=== PATIENT | male | born 1955 | race Caucasian/White ===

== ENCOUNTER 2020-09-01 06:19 | Outpatient (REF) | payer OTHER, SELFPAY ==
[2020-09-01 11:11] LABS: Glucose Urine UA NEG (NEG); Leukocyte Esterase Urine NEG (NEG); Nitrite Urine NEG (NEG); Specific Gravity - Urine 1.025 (1.005-1.025); Urine Blood NEG (NEG); Urine Ketones NEG (NEG); Urine Protein 1+ MG/DL (NEG-TRACE)
[2020-09-01 11:13] LABS: Appearance Urine CLEAR; Color Urine YELLOW
[2020-09-01 11:14] LABS: MANUAL DIFF FLAG NO
[2020-09-01 11:21] LABS: Basophils Percent Auto 0.6 % (0-2); Eosinophils Absolute Auto 0.1 X10*3/uL (0.0-0.4); Eosinophils Percent Auto 2.3 % (0-4); Hematocrit 45.5 % (42-52); Imm Gran Abs Auto 0.03 X10*3/uL (0.00-0.03); Imm Gran Pct Auto 0.5 % (0.0-0.4); Lymphocytes Absolute Auto 1.8 X10*3/uL (1.2-4.9); Lymphocytes Percent Auto 28.2 % (20-40); Mean Corpuscular Hemoglobin 29.2 pg (27.0-33.0); Mean Corpuscular Volume 88.5 fL (80-98); Mean Platelet Volume 9.6 fL (9.4-12.4); Monocytes Absolute Auto 0.6 X10*3/uL (0.1-1.2); Monocytes Percent Auto 9.3 % (2-11); Neutrophils Absolute Auto 3.7 X10*3/uL (2.0-8.3); Neutrophils Percent Auto 59.1 % (45-73); Platelet Count 267 X10*3/uL (160-400); Red Blood Count 5.14 X10*6/uL (4.60-5.80); Red Cell Distribution Width 12.1 % (11.0-16.0); White Blood Count 6.2 X10*3/uL (4.8-10.8)
[2020-09-01 11:25] LABS: Mucus Urine TRACE /LPF; RBC Urine 0-2 /HPF (0); Squamous Epithelial Cell Urine TRACE /LPF; WBC Urine 0-2 /HPF (0-4)
[2020-09-01 12:02] LABS: Prostate Specific Antigen Scr 0.41 ng/mL (<0.05-4.0)
[2020-09-01 12:24] LABS: Alanine Aminotransferase 21 U/L (0-40); Albumin Level 4.5 g/dL (3.5-5.0); Alkaline Phosphatase 66 U/L (39-117); Anion Gap 15 (12-20); Aspartate Amino Transferase 18 U/L (5-37); Bilirubin Total 0.4 mg/dL (0.0-1.0); Blood Urea Nitrogen 33 mg/dL (9-16); Calcium 8.5 mg/dL (8.4-10.2); Carbon Dioxide 23 mmol/L (22-29); Chloride 106 mmol/L (96-108); Cholesterol 179 mg/dL; Estimated Glomerular Filt Rate 36; Glucose Fasting 103 mg/dL (60-99); HDL Cholesterol 53 mg/dL; LDL Cholesterol Calculated 105 mg/dl; Potassium 4.3 mmol/l (3.3-5.1); Sodium 140 mmol/L (135-145); Total Protein 7.5 g/dL (6.5-8.0); Triglycerides 105 mg/dL
== END 2020-09-01 06:20 | disposition home or self-care (01) ==
LOC: HO.HMGCLDS 06:19
PROVIDERS: PCP Internal Medicine; Visit Provider Internal Medicine
DX: Z00.00 Encounter for general adult medical examination without abnormal findings (principal)
CPT/HCPCS: 36415; 80053; 80061; 81001; 84153; 85025

== ENCOUNTER 2020-11-15 07:53 | Outpatient (REF) | payer OTHER, SELFPAY ==
[2020-11-15 11:45] LABS: Anion Gap 14 (12-20); Blood Urea Nitrogen 29 mg/dL (9-16); Calcium 8.7 mg/dL (8.4-10.2); Carbon Dioxide 26 mmol/L (22-29); Chloride 106 mmol/L (96-108); Estimated Glomerular Filt Rate 39; Glucose Random 140 mg/dL (60-115); Potassium 4.7 mmol/L (3.3-5.1); Sodium 141 mmol/L (135-145)
== END 2020-11-15 07:54 | disposition home or self-care (01) ==
LOC: HO.HMGCLDS 07:53
PROVIDERS: PCP Internal Medicine; Visit Provider Internal Medicine
DX: N28.9 Disorder of kidney and ureter, unspecified (principal)
CPT/HCPCS: 36415; 80048

== ENCOUNTER 2020-11-15 16:38 | Outpatient (REF) | payer OTHER, SELFPAY ==
--- NOTE | ~2020-11-15 | XR_ITS ---
EXAMINATION: XR KNEE, LEFT CLINICAL INFORMATION: Assess osteoarthritis COMPARISON: None TECHNIQUE: Four views of the left knee. FINDINGS: Bone alignment is normal. No fracture or dislocation is seen. There is arthritis at the medial femoral tibial and patellofemoral joints with joint space narrowing and osteophyte formation. There is an osteophyte at the quadriceps tendon insertion to the patella. There is no joint effusion. XR/XR knee LT 4V IMPRESSION: Moderate left knee osteoarthritis.
[2020-11-15 17:49] LABS: Estimated Average Glucose 108 mg/dL; Hemoglobin A1c % 5.4 %
== END 2020-11-15 16:39 | disposition home or self-care (01) ==
LOC: HO.LAB 16:38
PROVIDERS: PCP Internal Medicine; Visit Provider Internal Medicine
DX: I12.9 Hypertensive chronic kidney disease with stage 1 through stage 4 chronic kidney disease, or unspecified chronic kidney disease (principal); N18.9 Chronic kidney disease, unspecified; R73.03 Prediabetes; M25.562 Pain in left knee
CPT/HCPCS: 36415; 73564; 83036

== ENCOUNTER 2025-01-20 13:48 | Outpatient (AMB) | payer OTHER, SELFPAY ==
--- NOTE | 2025-01-12 15:46 | MHC.PC.OV ---
Intake Visit Reasons: Routine Sign Erector Required: No Accompanied by: Self / Same As Patient Tobacco use date assessed: 01/13/25 Fall risk assessment: No Falls in past year Last assessed Fall Risk: 01/13/25 Dental Screening Dental Screen Date: 01/13/25 Did you have a dental visit in the last 12 months?: Yes Did you have a dental problem in the last 6 months where you did not have access to dental care?: No Questionnaire PHQ-9 Over the last 2 weeks, how often have you been bothered by any of the following problems? 1. Little interest or pleasure in doing things: not at all 2. Feeling down, depressed, or hopeless: not at all 3. Trouble falling or staying asleep, or sleeping too much: not at all 4. Feeling tired or having little energy: not at all 5. Poor appetite or overeating: not at all 6. Feeling bad about yourself - or that you are a failure or have let yourself or your family down: not at all 7. Trouble concentrating on things, such as reading the newspaper or watching television: not at all 8. Moving or speaking so slowly that other people could have noticed. Or the opposite - being so fidgety or restless that you have been moving around a lot more than usual: not at all 9. Thoughts that you would be better off or of hurting yourself in some way: not at all Total score: 0 Source: Developed by Drs. Tereso Song, Elicia Reid, Hector Castellano and colleagues, with an educational jersey from [employer]. Thrive Questionnaire Date Thrive assessed: 01/13/25 I am a: Patient Within the past 12 months, did the food you bought not last and you didn't have the money to get more?: Never true Within the past 12 months, did you worry whether your food would run out before you got money to buy more?: Never true Do you have trouble paying for medicines?: No Do you have trouble getting transportation to medical appointments?: No Do you have trouble paying your heating and electricity bill?: No Do you have trouble taking care of your child, family member or friend?: No Do you have trouble with day-to-day activities such as bathing, preparing meals, shopping, managing finances, etc.?: No Are you currently unemployed and looking for a job?: No Are you interested in more education?: No THRIVE Score: 0 AUDIT C Alcohol Use Questionnaire (AUDIT-C) 1. How often do you have a drink containing alcohol?: Never 3. How often do you have six or more drinks on one occasion?: Never Total Score: 0 ELISEO-7 AMB Questionnaire ELISEO-7 Date ELISEO - 7 assessed: 01/13/25 Feeling nervous, anxious, or on edge: 0 = Not at all Not being able to stop or control worryin = Not at all Worrying too much about different things: 0 = Not at all Trouble relaxin = Not at all Being so restless that it is hard to sit still: 0 = Not at all Becoming easily annoyed or irritable: 0 = Not at all Feeling afraid as if something awful might happen: 0 = Not at all Total ELISEO-7 score (0-4 normal; 5-9 mild; 10-14 moderate; 15-21 severe): 0 Source: Developed by Drs. Tereso Song, Elicia Reid, Hector Castellano and colleagues, with an educational jersey from [employer] Coding
--- NOTE | 2025-01-20 13:43 | MHC.PC.OV ---
Vital Signs 01/20/25 13:53 Weight 222 lb BP 148/90 H Blood Pressure Location Rt brachial Position Sitting Pulse 85 Pulse Source Pulse Oximeter Temp 98.6 F Temp Source Axillary Pulse Oximetry (%) 99 Oxygen Delivery Method Room Air Intake Visit Reasons: Routine - see comments Drapery [place] Former Required: No Accompanied by: Self / Same As Patient Allergies No Known Allergies Allergy (Verified 01/20/25 13:44) Tobacco use date assessed: 01/20/25 Fall risk assessment: No Falls in past year Last assessed Fall Risk: 01/20/25 Dental Screening Dental Screen Date: 01/20/25 Did you have a dental visit in the last 12 months?: Yes Did you have a dental problem in the last 6 months where you did not have access to dental care?: No [facility] Medical History (Updated 01/20/25 @ 14:40 by Jose Francisco Foster MD) Hyperlipidemia Family History (Updated 01/20/25 @ 13:58 by Raquel Lynch MA) Mother No problems noted. Father No problems noted. Social History Housing: House Patient Tobacco Use Status: Never used Tobacco e-Cigarette/Vaping Use: Never Used service: No Current occupational status: retired Cognitive needs: No Hearing needs: No Vision needs: No Questionnaire PHQ-9 Over the last 2 weeks, how often have you been bothered by any of the following problems? 1. Little interest or pleasure in doing things: not at all 2. Feeling down, depressed, or hopeless: not at all 3. Trouble falling or staying asleep, or sleeping too much: not at all 4. Feeling tired or having little energy: not at all 5. Poor appetite or overeating: not at all 6. Feeling bad about yourself - or that you are a failure or have let yourself or your family down: not at all 7. Trouble concentrating on things, such as reading the newspaper or watching television: not at all 8. Moving or speaking so slowly that other people could have noticed. Or the opposite - being so fidgety or restless that you have been moving around a lot more than usual: not at all 9. Thoughts that you would be better off or of hurting yourself in some way: not at all Total score: 0 Source: Developed by Drs. Tereso Song, Hector Dover and colleagues, with an educational jersey from [employer]. Thrive Questionnaire Date Thrive assessed: 01/20/25 I am a: Patient Within the past 12 months, did the food you bought not last and you didn't have the money to get more?: Never true Within the past 12 months, did you worry whether your food would run out before you got money to buy more?: Never true Do you have trouble paying for medicines?: No Do you have trouble getting transportation to medical appointments?: No Do you have trouble paying your heating and electricity bill?: No Do you have trouble taking care of your child, family member or friend?: No Do you have trouble with day-to-day activities such as bathing, preparing meals, shopping, managing finances, etc.?: No Are you currently unemployed and looking for a job?: No Are you interested in more education?: No THRIVE Score: 0 AUDIT C Alcohol Use Questionnaire (AUDIT-C) 1. How often do you have a drink containing alcohol?: Monthly or less 2. How many drinks containing alcohol do you have on a typical day when you are drinking?: 1 or 2 3. How often do you have six or more drinks on one occasion?: Less than monthly Total Score: 2 ELISEO-7 AMB Questionnaire ELISEO-7 Date ELISEO - 7 assessed: 01/20/25 Feeling nervous, anxious, or on edge: 0 = Not at all Not being able to stop or control worryin = Not at all Worrying too much about different things: 0 = Not at all Trouble relaxin = Not at all Being so restless that it is hard to sit still: 0 = Not at all Becoming easily annoyed or irritable: 0 = Not at all Feeling afraid as if something awful might happen: 0 = Not at all Total ELISEO-7 score (0-4 normal; 5-9 mild; 10-14 moderate; 15-21 severe): 0 Source: Developed by Drs. Tereso Song, Hector Dover and colleagues, with an educational jersey from [employer]. Physical exam (Primary Care) Vital Signs: Last Vital Signs Temp 98.6 F 05/21/25 13:53 Pulse 85 01/20/25 13:53 BP 148/90 H 01/20/25 13:53 Pulse Ox 99 01/20/25 13:53 Oxygen Delivery Method Room Air 01/20/25 13:53 Tobacco/Smoking Status: Tobacco use Status Tobacco use date assessed 01/20/25 01/20/25 13:45 Patient Tobacco Use Status Never used Tobacco 01/20/25 13:45 e-Cigarette/Vaping Use Never Used 01/20/25 13:45 PHQ-9: PHQ-9 Score PHQ-9: Total score 0 01/20/25 13:58 Thrive Assessment: Date of Thrive Assessment Date Thrive assessed 01/20/25 01/20/25 13:45 Coding Level of Care Code New Pt Level 4 (71863) Complex EM visit Add On G2211 Diagnoses Hyperlipidemia E78.5 Assessment & Plan Assessment & Plan (1) Hyperlipidemia: Code(s): E78.5 - Hyperlipidemia, unspecified Category: Medical Plan: Will call with results of blood work Plan History of Present Illness The patient is a 69-year-old male presenting with requests for routine blood work and colorectal screening. He reported completing a Cologuard test five years prior and plans to conduct another after returning from a trip. He noted a sore throat, predominantly nocturnal, and shared concern regarding ear congestion related to flying. While under routine surveillance by [facility] for knee issues, no immediate surgical intervention was planned. 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 - He is actively engaged in physical work and remains on his feet daily. - Declines any current medication use, aside from enfa-cza-troncys fish oil, aspirin, and eye vitamins. Review of Systems - HEENT: Reports sore throat at night; reports ear congestion especially concerning air travel; Denies wax accumulation. - Musculoskeletal: Denies current intervention; acknowledges historical knee issues due to prolonged maintenance work. - Gastrointestinal: Denies current gastrointestinal complaints; Reports last Cologuard screening five years ago. - General: Denies overt health concerns; expresses wellness aside from noted minor ailments. Physical Exam General: Cooperative and healthy appearing Nutritional Appearance: Well nourished Orientation/consciousness: Patient oriented x3 Limitations: No limitations Head: Normal to inspection General: Appearance normal, both eyes and all related structures Neck: Normal visual inspection Chest: Normal palpation of entire chest wall Respiratory: No issues, patient reports no breathing problems. ormal respiratory effort Neurology: Patient oriented x3, no neurological concerns reported. Results Plan 1. Travel-Related Ear Congestion - Take Sudafed and chew gum before flight. 2. Sore Throat, Likely Viral Pharyngitis - No concerning findings on examination; condition expected to resolve. 3. Potential Need For Knee Arthroplasty - Continues observation; encouraged follow-up with orthopedics as needed. Discussion Notes I discussed the patient's concerns regarding ear congestion and sore throat. I reassured him regarding the benign nature of the sore throat, likely viral, and advised that taking Sudafed and chewing gum before flights should help manage ear congestion. We also reviewed the patient?s work-related knee discomfort and discussed ongoing orthopedics monitoring without current surgical plans. The necessity of a new Cologuard test post-trip and fasting blood work were also agreed upon, ensuring preventive care continues as planned. Patient Instructions - Take Sudafed and chew gum before flying for ear congestion. - Arrive fasting for blood work. - Follow-up with Cologuard after your trip. - Monitor knee condition; consult orthopedics if worsening occurs. - Seek attention if sore throat persists or worsens. Orders: Orders Complete Blood Count no Diff Today E78.5 - Hyperlipidemia, unspecified Lipid Panel Today E78.5 - Hyperlipidemia, unspecified Liver Panel Today E78.5 - Hyperlipidemia, unspecified Basic Metabolic Panel Today E78.5 - Hyperlipidemia, unspecified Thyroid Stimulating Hormone Today E78.5 - Hyperlipidemia, unspecified UA and rflx microscopic Today E78.5 - Hyperlipidemia, unspecified Referrals Cologuard Test Z12.11 - Encounter for screening for malignant neoplasm of colon
[2025-01-20 13:53] VITALS: BP 148/90; PULSE 85; TEMP 37; O2SAT 99
--- OUTSIDE RECORDS SUMMARY | 2025-01-20 14:21 | XMS_ITS | Data Portability ---
Author Organization [facility], Home Service Address [address] [place] [address] Assessment Encounter Date Assessment Date Assessment LastModified by Organization Details LastModified Time 03/30/2019 03/30/2019 recc to have a colonoscopy he will consider Not available 03/30/2019 14:35:48 Plan of Treatment Reminders Order Date Submit Date Provider Last Modified By Organization Details Last Modified Time Details Appointments None recorded . Lab CMP, serum or plasma 03/30/20 [facility] Not available 9 14:40:48 CBC w/ auto diff 03/30/20 19 [facility] Not available 9 14:40:48 PSA, serum or plasma 03/30/20 19 [facility] Not available 9 14:40:49 lipid panel, blood 03/30/20 19 [address] Not available 9 14:40:49 Referral None recorded . Procedures None recorded . Surgeries None recorded . Imaging None recorded . Medication Orders None recorded . Patient TargetsNo targets recorded. Patient Instructions Encounter Date Encounter Id Patient Instructions Last Modified By Organization Details Last Modified Time 03/30/2019 [id number] psoriasis: care instructions Not available 03/30/2019 14:35:25 Reason for Referral None Reported. Problems Name Problem SNOMED Code Status Onset Date Resolution Date Notes Provider Name and Address Organization Details Recorded Time Psoriasis [id number] Active Nino Khan, DO [address] [place], [address], [facility] 9 14:00:33 Problem Notes None recorded. Medical Equipment None Reported. Allergies No known drug allergies Medications Name Sig Start Date Stop Date Status Note LastModified by Organization Details LastModified Time halobetasol propionate 0.05 % topical ointment uses only as needed active Not Available Not Available No t Available Vitals Date Recorded Body height Body mass index (BMI) Body weight Heart rate Oxygen saturation Oxygen saturation in Arterial blood by Pulse oximetry Systolic blood pressure Diastolic blood pressure Provider Name and Address Organization Details Last Updated DateTime 160.02 cm 36.6 kg/m2 65773.9 g 88 /min 100 % 100 % 156 mm[Hg] 84 mm[Hg] Nino Khan DO [address] [place] [address], [phone], [facility] 9 14:02:22 Social History None recorded. Functional Status None recorded. Mental Status None recorded. Family History Nothing Reported. Medical History No medical history recorded. Past Encounters Encounter ID Performer Location Encounter Start Date Encounter Closed Date Diagnosis/Indication Diagnosis SNOMED-CT Code Diagnosis ICD10 Code Diagnosis Note [id number] Nino Khan DO [facility] [address] [place] [address],[place] [address] 03/30/2019 13:48:25 03/30/2019 14:42:06 [facility] 7123070 L40.[address] dozier no current issue [facility] examination 284473016 Z00.00 Health Concerns Section Related Observation LastModified by Organization Detai ls LastModified Time None Recorded Concern Status LastModified by Organization Details LastModified Time None Recorded Advance Directives Directive None Recorded Payers Encounter Date Sequence Insurance Name Policy Number Policy Colunga Covered Member ID Colunga Member ID Guarantor Name 03/30/[address] [place] [address] [id number] Martha Jackelin [id number] Hamilton Benítez Notes Date Note Type Note Provider Name a nd Address Organization Details Recorded Time 03/30/2019 text/html here for rehck feels good and is not having any issues denies cp 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
--- OUTSIDE RECORDS SUMMARY | 2025-01-20 14:21 | XMS_ITS | Clinical Summary ---
Author Organization [facility] Facility Address [address] [address] Care Team Providers Care Carpenter Repair Name Role Phone Andrew Christensen MD Primary Care Provider [phone] Social History Tobacco Use Types Packs/Day Years Used Date Smoking Tobacco: Never Assessed Sex and Gender Information Value Date Recorded Sex Assigned at Not on file Legal Sex Male 1:44 PM EDT Gender Identity Not on file Sexual Orientation Not on file Plan of Treatment Health Maintenance Due Date Last Done Comments Colorectal Cancer Screening: Annual FOBT 2002 Colorectal Cancer Screening: Colonoscopy 2002 Colorectal Cancer Screening: Sigmoidoscopy 2002 Pneumococcal Vaccine: 50+ Ye ars (1 of 1 - PCV) 2003 Influenza Vaccine (Season Ended) 2025 Hepatitis B Vaccine Aged Out No longe r eligible based on patient's age to complete this topic Care Teams Carpenter Repair Relationship Specialty Start Date End Date Andrew Christensen MD [id number] [place], [place] PCP - General Internal Medicine 11/25/20
== END 2025-01-20 14:36 | disposition home or self-care (01) ==
LOC: HO.HMCHD 13:49
PROVIDERS: PCP Internal Medicine; Visit Provider Internal Medicine
DX: E78.5 Hyperlipidemia, unspecified (principal)

== ENCOUNTER → 2025-01-20 13:48 | Outpatient (BNVA) | payer OTHER, SELFPAY | PROVIDERS: PCP Internal Medicine; Visit Provider Internal Medicine | DX: Z13.89 Encounter for screening for other disorder (principal) ==

== ENCOUNTER 2025-06-01 14:08 | Outpatient (REF) | payer OTHER, SELFPAY ==
[2025-06-01 15:00] LABS: MANUAL DIFF FLAG NO
[2025-06-01 15:30] LABS: Hematocrit 41.9 % (42.0-52.0); Hemoglobin 14.7 g/dl (14.0-18.0); Imm Gran Abs Auto 0.02 X10*3/uL (0.00-0.03); Imm Gran Pct Auto 0.3 % (0.0-0.4); Lymphocytes Absolute Auto 1.7 X10*3/uL (1.2-4.9); Mean Corpuscular HGB Conc 35.1 g/dl (31.0-36.0); Mean Corpuscular Hemoglobin 29.6 pg (27.0-33.0); Mean Corpuscular Volume 84.5 fL (80.0-98.0); NRBC Abs Auto 0.000 X10*3/uL (0.0-0.012); NRBC Pct Auto 0.0 /100WBC (0.0-0.2); Platelet Count 233 X10*3/uL (160-400); Red Blood Count 4.96 X10*6/uL (4.60-5.80); White Blood Count 7.1 X10*3/uL (4.8-10.8)
[2025-06-01 15:34] LABS: Total Hemoglobin (HGBA1C) 3748.9326 umol/L
[2025-06-01 16:13] LABS: Alanine Aminotransferase 19 U/L (0-40); Albumin Level 4.5 g/dL (3.5-5.0); Alkaline Phosphatase 71 U/L (39-117); Anion Gap 13 (12-20); Aspartate Amino Transferase 27 U/L (5-37); Blood Urea Nitrogen 35 mg/dL (9-16); Calcium 8.6 mg/dL (8.4-10.2); Carbon Dioxide 23 mmol/L (22-29); Chloride 112 mmol/L (96-108); Cholesterol 166 mg/dL (<200); Estimated Glomerular Filt Rate 26; HDL Cholesterol 45 mg/dL (>40); Potassium 4.6 mmol/L (3.3-5.1); Sodium 143 mmol/L (135-145); Total Protein 7.2 g/dL (6.5-8.0); Triglycerides 110 mg/dL (<150)
[2025-06-02 05:00] LABS: Syphilis Screen Nonreactive (Nonreactive)
[2025-06-02 05:52] LABS: HBS Num1 0.00 mIU/mL (0-7.99); HBc Num1 0.06 S/CO (0.00-0.79); HBsAGNum1 0.44 S/CO (0.00-0.99); HIV Num 1 0.06 S/CO (0.00-0.99); Hepatitis A Antibody IgM 0.15 Index (0-0.79); Hepatitis B Surface Antigen Negative (Negative); ~HepC Num1 0.12 S/CO (0.00-0.79); ~Hepatitis A Antibody IgM Nonreactive (Nonreactive); ~Hepatitis B Surface Antibody NONREACTIVE (Nonreactive); ~Hepatitis C Antibody Nonreactive (Nonreactive)
== END 2025-06-01 14:09 | disposition home or self-care (01) ==
LOC: HO.LAB 14:08
PROVIDERS: PCP Student in an Organized Health Care Education/Training Program; Visit Provider Student in an Organized Health Care Education/Training Program
DX: Z76.89 Persons encountering health services in other specified circumstances (principal); J06.9 Acute upper respiratory infection, unspecified; I10 Essential (primary) hypertension; M17.11 Unilateral primary osteoarthritis, right knee; Z79.899 Other long term (current) drug therapy
CPT/HCPCS: 36415; 80053; 80061; 82306; 83036; 84443; 85025; 86704; 86706; 86709; 86780; 86803; 87340; 87389

== ENCOUNTER 2025-06-01 14:08 | Outpatient (AMB) | payer OTHER, SELFPAY ==
--- NOTE | 2025-06-01 12:49 | MHC.PC.OV ---
Vital Signs 06/01/25 14:16 Height 5 ft 5 in Weight 217 lb BMI 36.1 BP 160/102 H Blood Pressure Location Lt brachial Position Sitting Respiration 18 Pulse 88 Pulse Source Pulse Oximeter Temp 100.2 F Temp Source Temporal Artery Scan Pulse Oximetry (%) 98 Oxygen Delivery Method Room Air Intake Visit Reasons: Sick Appt Nursing Executive Required: No Accompanied by: Spouse Allergies No Known Allergies Allergy (Verified 06/01/25 12:49) Medication List - Last Reconciled 06/01/25 by Christopher Saldana MD halobetasol propionate 0.05% topical BEDTIME Tobacco use date assessed: 01/20/25 Fall risk assessment: No Falls in past year Last assessed Fall Risk: 06/01/25 Dental Screening Dental Screen Date: 06/01/25 Did you have a dental visit in the last 12 months?: Yes Did you have a dental problem in the last 6 months where you did not have access to dental care?: No Was dental information given to patient?: Patient has dentist HPI HPI Comments History of Present Illness Details The patient is a 69-year-old male presenting with a persistent cough and potential upper respiratory infection. The symptoms began after returning from a trip to [place], which started on a Saturday. He reported the onset of coughing initially, followed by a sore feeling in the lungs from the frequency of coughing. He experienced a low-grade fever of 98.9?F, which then increased to 100.2?F. There were episodes of productive cough with green sputum. Despite the frequent coughing, the patient denied any breathing difficulties. The patient tested negative for COVID-19 but has not been tested for influenza or RSV. The symptoms include coughing and a mild fever, with the cough alleviating over time as symptoms are reported to be calming down in the present context. He is cautious about exposure as he works with older, handicapped individuals and was exposed to someone with a cold. The patient prefers not to use antibiotics prematurely and prefers symptomatic treatments due to the absence of severe symptoms like difficulty breathing or high fever. 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 - Smoking: Denies smoking. - Alcohol: Consumes alcohol occasionally. - Exercise: Has limitations due to [id number] knee issues but expressed an interest in biking and walking for exercise. - Weight Management: Attempts at weight loss are ongoing; acknowledges being overweight. - Household: Lives with his daughter, who is also experiencing coughing symptoms. [facility] Medical History (Updated 06/01/25 @ 14:41 by Christopher Saldana MD) OA (osteoarthritis) of knee Hypertension Upper respiratory infection Flu syndrome Hyperlipidemia Family History (Updated 01/20/25 @ 13:58 by Raquel Lynch MA) Mother No problems noted. Father No problems noted. Social History Housing: House Patient Tobacco Use Status: Never used Tobacco e-Cigarette/Vaping Use: Never Used service: No Current occupational status: retired Cognitive needs: No Hearing needs: No Vision needs: No Questionnaire Thrive Questionnaire Date Thrive assessed: 01/20/25 ELISEO-7 AMB Questionnaire ELISEO-7 Date ELISEO - 7 assessed: 01/20/25 Source: Developed by Drs. Tereso Song, Elicia Reid, Hector Castellano and colleagues, with an educational jersey from [employer]. Review of Systems Const Details: - Respiratory: Reports cough, somewhat alleviated over time, with productive green sputum. Denies difficulty breathing. - Constitutional: Reports low-grade fever initially increasing to a weak fever. Denies severe fever symptoms. All systems reviewed & are unremarkable except as reviewed in HPI and above Physical exam (Primary Care) Vital Signs: Last Vital Signs Temp 100.2 F 06/01/25 14:16 Pulse 88 06/01/25 14:16 Resp 18 06/01/25 14:16 BP 160/102 H 06/01/25 14:16 Pulse Ox 98 06/01/25 14:16 Oxygen Delivery Method Room Air 06/01/25 14:16 BMI result Body Mass Index 36.1 Tobacco/Smoking Status: Tobacco use Status Tobacco use date assessed 01/20/25 06/01/25 12:50 Patient Tobacco Use Status Never used Tobacco 06/01/25 12:50 e-Cigarette/Vaping Use Never Used 06/01/25 12:50 Thrive Assessment: Date of Thrive Assessment Date Thrive assessed 01/20/25 06/01/25 12:50 Const Other: General: +Alert and oriented, Well nourished, No acute distress. Eye: Pupils are equal, round and reactive to light, Intact accommodation, Extraocular movements are intact, Normal conjunctiva, Vision unchanged. HENT: Normocephalic, Atraumatic, Tympanic membranes are clear, Normal hearing, Oral mucosa is moist, No pharyngeal erythema, Ear canals patent. Respiratory: Lungs CTA bilaterally, No wheeze, Respirations are non-labored, Cough present, Sputum green. Cardiovascular: Regular rate, Regular rhythm, S1 auscultated, S2 auscultated, No murmur, Good pulses equal in all extremities, Normal peripheral perfusion, No edema. Gastrointestinal: Soft, Non-tender, Non-distended, Normal bowel sounds, No organomegaly. Musculoskeletal: Normal range of motion, Normal strength, No tenderness, No swelling, No deformity, Normal gait. Integumentary: Warm, Dry, [place], Intact. Neurologic: Alert, Oriented, Normal sensory, Normal motor function, No focal defects, Cranial Nerves II-XII are grossly intact, Normal deep tendon reflexes. Psychiatric: Cooperative, Appropriate mood & affect, Normal judgment. Coding Level of Care Code Est Pt Level 4 (18387) Complex EM visit Add On G2211 Diagnoses Viral upper respiratory tract infection J06.9 URI type: unspecified viral URI Hypertension, unspecified type I10 Hypertension type: unspecified Primary osteoarthritis of right knee M17.11 Osteoarthritis type: primary Laterality: right Assessment & Plan Assessment & Plan (1) Upper respiratory infection: Comment: - Suspected viral etiology with symptomatic treatment advised. - Reassurance was provided for close monitoring of symptoms for exacerbation. - Follow-up advice given for significant changes, like difficulty breathing or lack of improvement within a week. Code(s): J06.9 - Acute upper respiratory infection, unspecified Category: Medical Qualifiers: URI type: unspecified viral URI Qualified Code(s): J06.9 - Acute upper respiratory infection, unspecified (2) Hypertension: Comment: - Discussed home monitoring of blood pressure; advised reducing salt intake and weight management. - Scheduled to review blood pressure readings at next appointment. - No immediate medication changes. Code(s): I10 - Essential (primary) hypertension Category: Medical Qualifiers: Hypertension type: unspecified Qualified Code(s): I10 - Essential (primary) hypertension (3) OA (osteoarthritis) of knee: Comment: - Encouraged weight loss to lessen joint pressure. - No changes in current management plan; monitoring is ongoing through an orthopedic consult. Code(s): M17.9 - Osteoarthritis of knee, unspecified Category: Medical Qualifiers: Osteoarthritis type: primary Laterality: right Qualified Code(s): M17.11 - Unilateral primary osteoarthritis, right knee Plan: Health maintenance: - Encouraged to continue regular physical activity as tolerated. - Recommended weight management for overall health maintenance. - Discussed reduction of salt in the diet to help control blood pressure. - Scheduled blood work to monitor cholesterol levels and explore potential diabetes. Patient was informed and verbally consented to the use of an ambient scribe for clinic note documentation during this visit. Plan During this discussion, we addressed the patient's upper respiratory symptoms, diagnosed as a likely viral upper respiratory infection given the lack of severe symptoms and negative COVID-19 test. I emphasized treating symptoms conservatively at this stage, reserving antibiotics for more severe or persistent symptoms. We reviewed the patient's ongoing health issues, including essential hypertension and hyperlipidemia, with current management continuing as previously recommended, with lifestyle changes as a priority. During our conversation, we explored his acknowledged joint issues and advised weight management and low-impact exercise to support joint health. The importance of monitoring symptoms for any progression and revisiting in the case of no improvement was explained. The conversation included encouragement around staying active and adhering to current treatment plans. Orders: Orders Comprehensive Met. Panel Today Z76.89 - Persons encountering health services in other specified circumstances Hepatitis A,B,C Profile Today Z76.89 - Persons encountering health services in other specified circumstances HIV Ab/Ag Today Z76.89 - Persons encountering health services in other specified circumstances Lipid Panel Today Z76.89 - Persons encountering health services in other specified circumstances TSH reflex Free T4 Today Z76.89 - Persons encountering health services in other specified circumstances Complete Blood Count Auto Diff Today Z76.89 - Persons encountering health services in other specified circumstances Hemoglobin A1c Today Z76.89 - Persons encountering health services in other specified circumstances Syphilis Screen Today Z76.89 - Persons encountering health services in other specified circumstances Vitamin D 25-OH Total Today Z76.89 - Persons encountering health services in other specified circumstances Patient Instructions: - Take Tylenol or Mucinex as needed for cough and fever. - Monitor blood pressure at home and keep a log of readings. - Continue taking Lipitor as prescribed, and report any side effects. - Ensure to mask up when around older individuals or at work with vulnerable populations. - Engage in low-impact exercises like biking or walking as much as possible. - Work on reducing salt in the diet and watch portions to aid in weight management. - Return for blood work and scheduled follow-up within the next three months or call if symptoms worsen. - Seek emergency care if breathing becomes difficult, or symptoms severely worsen.
[2025-06-01 14:16] VITALS: BP 160/102; PULSE 88; RESP 18; TEMP 37.9; O2SAT 98; BMI 36.1
--- OUTSIDE RECORDS SUMMARY | 2025-06-01 15:30 | XMS_ITS | Clinical Summary ---
Author Organization [facility] Facility Address [address] [address] Care Team Providers Care Education Adviser Name Role Phone Andrew Christensen MD Primary Care Provider [phone] Social History Tobacco Use Types Packs/Day Years [...] of 1 - PCV) 2003 Influenza Vaccine (#1) 2025 Hepatitis B Vaccine Aged Out No longe r eligible based on patient's age to complete this topic Care Teams Education Adviser Relationship Specialty Start Date End Date Andrew Christensen MD [id number] [place], [place] PCP - General Internal Medicine 11/25/20
== END 2025-06-01 14:39 | disposition home or self-care (01) ==
LOC: HO.HMCHD 14:09
PROVIDERS: PCP Internal Medicine; Visit Provider Student in an Organized Health Care Education/Training Program
DX: J06.9 Acute upper respiratory infection, unspecified (principal); I10 Essential (primary) hypertension; M17.11 Unilateral primary osteoarthritis, right knee

== ENCOUNTER 2025-06-24 14:28 | Outpatient (AMB) | payer OTHER, SELFPAY ==
[2025-06-24 14:45] VITALS: BP 188/92; PULSE 96; O2SAT 99; BMI 35.9
--- NOTE | 2025-06-24 14:45 | HO.NEPHOV_ITS ---
Vital Signs 06/24/25 14:45 06/24/25 15:23 Height 5 ft 5 in Weight 216 lb BMI 35.9 BP 188/92 H 144/84 H Blood Pressure Location Lt brachial Rt brachial Position Sitting Sitting Pulse 96 Pulse Source Pulse Oximeter Pulse Oximetry (%) 99 Oxygen Delivery Method Room Air Intake Visit Reasons: INP: Chronic kidney dz, stage 4 confirmed Control Room Tender Required: No Accompanied by: Spouse Allergies No Known Allergies Allergy (Verified 06/24/25 14:47) Medication List - Last Reconciled 06/24/25 by You Kilpatrick MD aspirin 0.5 mg PO DAILY halobetasol propionate 0.05% topical BEDTIME omega-3 fatty acids-fish oil 360-1,200 mg (Fish Oil) 1 cap PO DAILY HPI Comments Details: - The patient is a 69-year-old male presenting with chronic kidney disease - Chronic Kidney Disease: Kidney function at 26%, decreased from 39% in 2020 - he does not carry a diagnosis of Hypertension: Not on any antihypertensive agents - Osteoarthritis: Knee pain, uses ibuprofen occasionally. No specific complaints today. He was found to have elevated serum creatinine and a routine evaluation hence this consultation FORMERLY [facility], [facility] Medical History (Updated 06/24/25 @ 15:25 by You Kilpatrick MD) CKD (chronic kidney disease) stage 4, GFR 15-29 ml/min OA (osteoarthritis) of knee Hypertension Upper respiratory infection Flu syndrome Hyperlipidemia Family History Mother No problems noted. Father No problems noted. Social History Housing: House Patient Tobacco Use Status: Never used Tobacco e-Cigarette/Vaping Use: Never Used service: No Current occupational status: retired Cognitive needs: No Hearing needs: No Vision needs: No Review of Systems Const Denies fever(s) and Denies weight loss Card Denies chest pain Resp Denies cough and Denies hemoptysis GI Denies abdominal pain, Denies diarrhea and Denies nausea Musc Denies back pain Neuro Denies focal weakness Physical Exam Vital Signs: Last Vital Signs Pulse 96 06/24/25 14:45 BP 188/92 H 06/24/25 14:45 Pulse Ox 99 06/24/25 14:45 Oxygen Delivery Method Room Air 06/24/25 14:45 BMI result Body Mass Index 35.9 Comfortable Neck supple no JVD. Lungs entry equal no rales. Heart S1-S2 heard no gallop or rub. Abdomen soft nontender. Neuro alert awake oriented. No asterixis. Extremities no edema. Results Reviewed Nephrology Results: Hgb, (14.0-18.0) 14.7 g/dl 06/01/25 WBC, (4.8-10.8) 7.1 X10*3/uL 06/01/25 Plt Count, (160-400) 233 X10*3/uL 06/01/25 Sodium, (135-145) 143 mmol/L 06/01/25 Potassium, (3.3-5.1) 4.6 mmol/L 06/01/25 Chloride, (96-108) 112 mmol/L H 06/01/25 Carbon Dioxide, (22-29) 23 mmol/L 06/01/25 BUN, (9-16) 35 mg/dL H 06/01/25 Creatinine, (0.5-1.4) 2.49 mg/dL H 06/01/25 Calcium, (8.4-10.2) 8.6 mg/dL 06/01/25 Urine Protein, (NEG-TRACE) 1+ MG/DL H 09/01/20 Assessment & Plan Assessment & Plan (1) CKD (chronic kidney disease) stage 4, GFR 15-29 ml/min: Code(s): N18.4 - Chronic kidney disease, stage 4 (severe) Category: Medical (2) Hypertension: Code(s): I10 - Essential (primary) hypertension Category: Medical Qualifiers: Hypertension type: unspecified Qualified Code(s): I10 - Essential (primary) hypertension Plan Based on the available data Hamilton has chronic kidney disease. Serum creatinine was elevated at 1.8 about 4 years ago. The repeat creatinine is 2.36 with a EGFR of 26 mL/minute. Etiology needs to be determined. He does not have a history of hypertension however today the blood pressure was elevated. He has not been on any anti hypertensive medications. No urine studies are available at this time. The differential diagnosis rather wide. Workup initiated including renal ultrasonogram to rule out hydronephrosis obstruction and to assess the kidney size and echogenicity. Check urine for protein creatinine ratio along with a routine urinalysis. Comprehensive metabolic panel ordered. As for the blood pressure I will start him on amlodipine 2.5 mg a day encouraged him to stand low-sodium diet Increase physical activity and encouraged weight loss. Further workup will be based on the outcome of the above baseline investigations. Returned to office in the next few weeks. . Orders: Orders Complete Blood Count Auto Diff Today I10 - Essential (primary) hypertension, N18.4 - Chronic kidney disease, stage 4 (severe) Creatinine Urine Today I10 - Essential (primary) hypertension, N18.4 - Chronic kidney disease, stage 4 (severe) UA and rflx microscopic Today I10 - Essential (primary) hypertension, N18.4 - Chronic kidney disease, stage 4 (severe) Uric Acid Today I10 - Essential (primary) hypertension, N18.4 - Chronic kidney disease, stage 4 (severe) Vitamin D 25-OH Total Today I10 - Essential (primary) hypertension, N18.4 - Chronic kidney disease, stage 4 (severe) Comprehensive Met. Panel Today I10 - Essential (primary) hypertension, N18.4 - Chronic kidney disease, stage 4 (severe) Total Protein Urine Random Today I10 - Essential (primary) hypertension, N18.4 - Chronic kidney disease, stage 4 (severe) Medications: New amlodipine 2.5 mg PO DAILY 30 tabs 1RF Coding Level of Care Code New Pt Level 4 (27800) Diagnoses CKD (chronic kidney disease) stage 4, GFR 15-29 ml/min N18.4 Hypertension, unspecified type I10 Hypertension type: unspecified
[2025-06-24 15:23] VITALS: BP 144/84
--- OUTSIDE RECORDS SUMMARY | 2025-06-24 18:20 | XMS_ITS | Data Portability ---
Author Organization [facility], Telehealth Patient Home Address [address] [place] [address] Assessment Encounter Date Assessment Date Assessment LastModified [...] By Organization Details Last Modified Time 03/30/2019 [id number] psoriasis: care instructions Not available 03/30/2019 14:35:25 Reason for Referral None Reported. Problems Name Problem SNOMED Code Status Onset Date Resolution Date Notes Provider Name and Address Organization Details Recorded Time Psoriasis [id number] Active 019 Nino Khan, DO [address] [place], [phone], [facility] 9 14:00:33 Problem Notes None [...] in Arterial blood by Pulse oximetry Systolic And Diastolic Provider Name and Address Organization Details Last Updated DateTime 9 160.02 cm 36.6 kg/m2 63468.9 g 88 /min 100 % 100 % 156/84 mm[Hg] Nino Khan DO [address] [place] [address], [phone], [facility] 9 14:02:22 Social History None recorded. Functional Status None recorded. Mental Status None recorded. Family History Nothing Reported. Medical History No medical history recorded. Past Encounters Encounter ID Performer Location Encounter Start Date Encounter Closed Date Diagnosis/Indication Diagnosis SNOMED-CT Code Diagnosis ICD10 Code Diagnosis IMO Codes Diagnosis Note [id number] Nino Khan DO [facility] [address] [place] [address],[place] [address] 03/30/2019 13:48:25 03/30/2019 14:42:06 Psoriasis 7631933 L40.[address] dozier no [facility] [id number] Z00.00 Health Concerns Section Related Observation LastModified by Organization Detai ls LastModified Time None Recorded Concern Status LastModified by Organization Details LastModified Time None Recorded Advance Directives Directive None Recorded Payers Insurance Date Sequence Insurance Name Policy Number Policy [place] Covered Member ID [place] Member ID Guarantor Name 03/25/[address] [place] [address] [id number] Martha Benítez [id number] Hamilton Benítez Notes Date Note Type Note Provider Name a nd Address Organization Details Recorded Time 03/30/2019 text/html ROS as noted in the HPI here for rehck feels good and is not having any issues denies cp 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
== END 2025-06-24 15:04 | disposition home or self-care (01) ==
LOC: HO.HKA 14:29
PROVIDERS: PCP Student in an Organized Health Care Education/Training Program; Referring Provider Student in an Organized Health Care Education/Training Program; Visit Provider Internal Medicine Hypertension Specialist
DX: I12.9 Hypertensive chronic kidney disease with stage 1 through stage 4 chronic kidney disease, or unspecified chronic kidney disease (principal); N18.4 Chronic kidney disease, stage 4 (severe)
CPT/HCPCS: 99204

== ENCOUNTER 2025-06-24 14:28 | Outpatient (REF) | payer OTHER, SELFPAY ==
[2025-06-24 15:21] LABS: MANUAL DIFF FLAG NO
[2025-06-24 15:28] LABS: Hematocrit 43.5 % (42.0-52.0); Hemoglobin 14.9 g/dl (14.0-18.0); Imm Gran Abs Auto 0.04 X10*3/uL (0.00-0.03); Imm Gran Pct Auto 0.4 % (0.0-0.4); Lymphocytes Absolute Auto 1.7 X10*3/uL (1.2-4.9); Mean Corpuscular HGB Conc 34.3 g/dl (31.0-36.0); Mean Corpuscular Hemoglobin 29.5 pg (27.0-33.0); Mean Corpuscular Volume 86.1 fL (80.0-98.0); NRBC Abs Auto 0.000 X10*3/uL (0.0-0.012); NRBC Pct Auto 0.0 /100WBC (0.0-0.2); Platelet Count 244 X10*3/uL (160-400); Red Blood Count 5.05 X10*6/uL (4.60-5.80); White Blood Count 8.9 X10*3/uL (4.8-10.8)
[2025-06-24 15:29] LABS: Appearance Urine Clear; Glucose Urine UA Negative (Negative); PH 5.0 (5.0-9.0); Specific Gravity - Urine 1.010 (1.005-1.025); UMIC TRIGGER UA YES
[2025-06-24 16:01] LABS: Total Protein Urine Random 42 mg/dL (<12)
[2025-06-24 16:07] LABS: Alanine Aminotransferase 19 U/L (0-40); Albumin Level 4.6 g/dL (3.5-5.0); Alkaline Phosphatase 65 U/L (39-117); Anion Gap 12 (12-20); Aspartate Amino Transferase 24 U/L (5-37); Blood Urea Nitrogen 35 mg/dL (9-16); Calcium 8.7 mg/dL (8.4-10.2); Carbon Dioxide 25 mmol/L (22-29); Chloride 110 mmol/L (96-108); Estimated Glomerular Filt Rate 24; Potassium 4.5 mmol/L (3.3-5.1); Sodium 142 mmol/L (135-145); Total Protein 7.4 g/dL (6.5-8.0); Uric Acid 6.6 mg/dL (3.4-7.0)
--- OUTSIDE RECORDS SUMMARY | 2025-06-24 19:02 | XMS_ITS | Clinical Summary ---
Author Organization [facility] Facility Address [address] [address] Care Team Providers Care Tow Operator Name Role Phone Andrew Christensen MD Primary Care Provider [phone] Social History Tobacco Use Types Packs/Day Years [...] age to complete this topic Care Teams Tow Operator Relationship Specialty Start Date End Date Andrew Christensen MD [id number] [place], [place] PCP - General Internal Medicine 11/25/20
== END 2025-06-24 14:29 | disposition home or self-care (01) ==
LOC: HO.LAB 14:28
PROVIDERS: PCP Student in an Organized Health Care Education/Training Program; Referring Provider Student in an Organized Health Care Education/Training Program; Visit Provider Internal Medicine Hypertension Specialist
DX: I12.9 Hypertensive chronic kidney disease with stage 1 through stage 4 chronic kidney disease, or unspecified chronic kidney disease (principal); N18.4 Chronic kidney disease, stage 4 (severe)
CPT/HCPCS: 36415; 80053; 81001; 82306; 82570; 84156; 84550; 85025

== ENCOUNTER 2025-07-15 14:32 | Outpatient (AMB) | payer OTHER, SELFPAY ==
[2025-07-15 14:41] VITALS: BP 192/102; PULSE 85; O2SAT 97; BMI 36.1
--- NOTE | 2025-07-15 14:41 | HO.NEPHOV_ITS ---
Vital Signs 07/15/25 14:41 Height 5 ft 5 in Weight 217 lb BMI 36.1 BP 192/102 H Blood Pressure Location Lt brachial Position Sitting Pulse 85 Pulse Source Pulse Oximeter Pulse Oximetry (%) 97 Oxygen Delivery Method Room Air Intake Visit Reasons: 2-3mon f/u w/labs [employer] Dietary Service Supervisor Required: No Accompanied by: Spouse Allergies No Known Allergies Allergy (Verified 07/15/25 14:43) Medication List - Last Reconciled 07/15/25 by You Kilpatrick MD amlodipine 2.5 mg PO DAILY aspirin 0.5 mg PO DAILY halobetasol propionate 0.05% topical BEDTIME omega-3 fatty acids-fish oil 360-1,200 mg (Fish Oil) 1 cap PO DAILY HPI Comments Details: - The patient is a 69-year-old male presenting with chronic kidney disease - Chronic Kidney Disease: Kidney function at 26%, decreased from 39% in 2020 - he does not carry a diagnosis of Hypertension: Not on any antihypertensive agents - Osteoarthritis: Knee pain, uses ibuprofen occasionally. No specific complaints today. He was found to have elevated serum creatinine and a routine evaluation hence this consultation 07/15/25 The patient is a 70-year-old male presenting with hypertension and chronic kidney disease. Hypertension has been a persistent issue, with blood pressure readings as high as 192/102 mmHg during visits, although the patient does not experience symptoms typically associated with such high readings. The patient does not regularly monitor blood pressure at home, and a 24-hour ambulatory blood pressure monitoring has been recommended to assess fluctuations throughout the day. The patient has reduced salt intake as a lifestyle modification to manage hypertension. Chronic kidney disease was noted as the patient's kidney function has not improved, prompting further testing and an ultrasound to evaluate the condition. The patient reports no issues with urination and maintains adequate hydration. [facility] Medical History (Updated 06/24/25 @ 15:25 by You Kilpatrick MD) CKD (chronic kidney disease) stage 4, GFR 15-29 ml/min OA (osteoarthritis) of knee Hypertension Upper respiratory infection Flu syndrome Hyperlipidemia Family History Mother No problems noted. Father No problems noted. Social History Housing: House Patient Tobacco Use Status: Never used Tobacco e-Cigarette/Vaping Use: Never Used service: No Current occupational status: retired Cognitive needs: No Hearing needs: No Vision needs: No Physical Exam Vital Signs: Last Vital Signs Pulse 85 07/15/25 14:41 BP 192/102 H 07/15/25 14:41 Pulse Ox 97 07/15/25 14:41 Oxygen Delivery Method Room Air 07/15/25 14:41 BMI result Body Mass Index 36.1 Results Reviewed Nephrology Results: Hgb, (14.0-18.0) 14.9 g/dl 06/24/25 WBC, (4.8-10.8) 8.9 X10*3/uL 06/24/25 Plt Count, (160-400) 244 X10*3/uL 06/24/25 Sodium, (135-145) 142 mmol/L 06/24/25 Potassium, (3.3-5.1) 4.5 mmol/L 06/24/25 Chloride, (96-108) 110 mmol/L H 06/24/25 Carbon Dioxide, (22-29) 25 mmol/L 06/24/25 BUN, (9-16) 35 mg/dL H 06/24/25 Creatinine, (0.5-1.4) 2.64 mg/dL H 06/24/25 Calcium, (8.4-10.2) 8.7 mg/dL 06/24/25 Urine Protein, (Neg-Trace) 30 (1+) mg/dL H 06/24/25 Urine Creatinine 64.87 mg/dL 06/24/25 Assessment & Plan Assessment & Plan (1) CKD (chronic kidney disease) stage 4, GFR 15-29 ml/min: Code(s): N18.4 - Chronic kidney disease, stage 4 (severe) Category: Medical (2) Hypertension: Code(s): I10 - Essential (primary) hypertension Category: Medical Qualifiers: Hypertension type: unspecified Qualified Code(s): I10 - Essential (primary) hypertension Plan Hamilton has chronic kidney disease. Serum creatinine was elevated at 1.8 about 4 years ago. The repeat creatinine is 2.36 with a EGFR of 26 mL/minute. and up to 2.6 mg/dL Etiology needs to be determined. - Work up in progress He does not have a history of hypertension however today the blood pressure was elevated. Obtain 24 hr ABPM before increasing AMlodipine Obtain renal ultrasonogram to rule out hydronephrosis obstruction and to assess the kidney size and echogenicity. Serologies ordered . Orders: Orders AMB 24 HR B/P Monitor PLACEMENT Today I10 - Essential (primary) hypertension, N18.4 - Chronic kidney disease, stage 4 (severe) Anti DNA DS Antibody Today I10 - Essential (primary) hypertension, N18.4 - Chronic kidney disease, stage 4 (severe) Complement C3 Today I10 - Essential (primary) hypertension, N18.4 - Chronic kidney disease, stage 4 (severe) Parathyroid Hormone Intact Today I10 - Essential (primary) hypertension, N18.4 - Chronic kidney disease, stage 4 (severe) Basic Metabolic Panel Today I10 - Essential (primary) hypertension, N18.4 - Chronic kidney disease, stage 4 (severe) DONATO Reflex Titer and Pattern Today I10 - Essential (primary) hypertension, N18.4 - Chronic kidney disease, stage 4 (severe) Neutrophil Cytoplasma Ab Today I10 - Essential (primary) hypertension, N18.4 - Chronic kidney disease, stage 4 (severe) Anti Glomerular Basement Memb Today I10 - Essential (primary) hypertension, N18.4 - Chronic kidney disease, stage 4 (severe) Complement C4 Today I10 - Essential (primary) hypertension, N18.4 - Chronic kidney disease, stage 4 (severe) Protein Electrophoresis, Serum Today I10 - Essential (primary) hypertension, N18.4 - Chronic kidney disease, stage 4 (severe) US renal BI Today I10 - Essential (primary) hypertension, N18.4 - Chronic kidney disease, stage 4 (severe) Medications: Refilled amlodipine 2.5 mg PO DAILY 30 tabs 1RF Coding Level of Care Code Est Pt Level 4 (51292) Diagnoses CKD (chronic kidney disease) stage 4, GFR 15-29 ml/min N18.4 Hypertension, unspecified type I10 Hypertension type: unspecified
--- OUTSIDE RECORDS SUMMARY | 2025-07-15 17:58 | XMS_ITS | Clinical Summary ---
Author Organization [facility] Facility Address [address] [address] Care Team Providers Care Nurse Ob Name Role Phone Andrew Christensen MD Primary Care Provider [phone] Social History Tobacco Use Types Packs/Day Years [...] age to complete this topic Care Teams Nurse Ob Relationship Specialty Start Date End Date Andrew Christensen MD [address] [place], [place] PCP - General Internal Medicine 11/25/20
--- OUTSIDE RECORDS SUMMARY | 2025-07-15 17:58 | XMS_ITS | Data Portability ---
Author Organization [facility] Internal Medicine, Telehealth Patient Home Address [address] [place] [address] Assessment Encounter Date Assessment Date Assessment LastModified [...] By Organization Details Last Modified Time 03/30/2019 [id number] psoriasis: care instructions Not available 03/30/2019 14:35:25 Reason for Referral None Reported. Problems Name Problem SNOMED Code Status Onset Date Resolution Date Notes Provider Name and Address Organization Details Recorded Time Psoriasis 2054410 Active 019 Nino Khan, DO [address] [place], [address], [facility] Internal Medicine 9 14:00:33 [...] Updated DateTime 9 160.02 cm 36.6 kg/m2 86852.9 g 88 /min 100 % 100 % 156/84 mm[Hg] Nino Khan DO [address] [place] [address], [phone], [facility] Medicine 9 14:02:22 Social History None recorded. Functional Status None recorded. Mental Status None recorded. Family History Nothing Reported. Medical History No medical history recorded. Past Encounters Encounter ID Performer Location Encounter Start Date Encounter Closed Date Diagnosis/Indication Diagnosis SNOMED-CT Code Diagnosis ICD10 Code Diagnosis IMO Codes Diagnosis Note [id number] Nino Khan DO [facility] Internal Medicine [address] [place] [address],[place] [address] 03/30/2019 13:48:25 03/30/2019 14:42:06 Psoriasis 3202258 L40.[address] dozier no current issue Adult [facility] th examination 593152457 Z00.00 Health Concerns Section Related Observation LastModified by Organization Detai ls LastModified Time None Recorded Concern Status LastModified by Organization Details LastModified Time None Recorded Advance Directives Directive None Recorded Payers Insurance Date Sequence Insurance Name Policy Number Policy Colunga Covered Member ID Colunga Member ID Guarantor Name 03/25/[address] [place] [address] [id number] Martha Benítez [id number] Hamilton Benítez Notes Date Note Type Note Provider Name a nd Address Organization Details Recorded Time 03/30/2019 text/html ROS as noted in the HPI here for rehck feels good and is not having any issues 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
== END 2025-07-15 15:09 | disposition home or self-care (01) ==
LOC: HO.HKA 14:33
PROVIDERS: PCP Student in an Organized Health Care Education/Training Program; Visit Provider Internal Medicine Hypertension Specialist
DX: I12.9 Hypertensive chronic kidney disease with stage 1 through stage 4 chronic kidney disease, or unspecified chronic kidney disease (principal); N18.4 Chronic kidney disease, stage 4 (severe)
CPT/HCPCS: 99214

== ENCOUNTER 2025-07-16 14:19 | Outpatient (AMB) | payer OTHER, SELFPAY ==
--- NOTE | 2025-07-16 14:27 | HO.NEPHOV ---
Vital Signs 07/16/25 14:27 Height 5 ft 5 in Intake Visit Reasons: BP interpretation Allergies No Known Allergies Allergy (Verified 07/15/25 14:43) HPI Comments Details: - The patient is a 69-year-old male presenting with chronic kidney disease - Chronic Kidney Disease: Kidney function at 26%, decreased from 39% in 2020 - he does not carry a diagnosis of Hypertension: Not on any antihypertensive agents - Osteoarthritis: Knee pain, uses ibuprofen occasionally. No specific complaints today. He was found to have elevated serum creatinine and a routine evaluation hence this consultation 07/15/25 The patient is a 70-year-old male presenting with hypertension and chronic kidney disease. Hypertension has been a persistent issue, with blood pressure readings as high as 192/102 mmHg during visits, although the patient does not experience symptoms typically associated with such high readings. The patient does not regularly monitor blood pressure at home, and a 24-hour ambulatory blood pressure monitoring has been recommended to assess fluctuations throughout the day. The patient has reduced salt intake as a lifestyle modification to manage hypertension. Chronic kidney disease was noted as the patient's kidney function has not improved, prompting further testing and an ultrasound to evaluate the condition. The patient reports no issues with urination and maintains adequate hydration. 07/16/2025 Underwent 24 hour ABP M [facility] Medical History (Updated 07/16/25 @ 15:01 by You Kilpatrick MD) CKD (chronic kidney disease) stage 4, GFR 15-29 ml/min OA (osteoarthritis) of knee Hypertension Upper respiratory infection Flu syndrome Hyperlipidemia Family History Mother No problems noted. Father No problems noted. Social History Housing: House Patient Tobacco Use Status: Never used Tobacco e-Cigarette/Vaping Use: Never Used service: No Current occupational status: retired Cognitive needs: No Hearing needs: No Vision needs: No Physical Exam Comfortable Neck supple no JVD. Lungs entry equal no rales. Heart S1-S2 heard no gallop or rub. Abdomen soft nontender. Neuro alert awake oriented. No asterixis. Extremities no edema. Office Procedures 24 B/P Monitor Interpretation Details: ABP M stage I hypertension. Minimal nocturnal dipping. Superimposed white coat effect present CPT: 72403 24 Hour Blood Pressure Monitor Reading Procedure code (CPT) selection complete Results Reviewed Nephrology Results: Hgb, (14.0-18.0) 14.9 g/dl 06/24/25 WBC, (4.8-10.8) 8.9 X10*3/uL 06/24/25 Plt Count, (160-400) 244 X10*3/uL 06/24/25 Sodium, (135-145) 142 mmol/L 06/24/25 Potassium, (3.3-5.1) 4.5 mmol/L 06/24/25 Chloride, (96-108) 110 mmol/L H 06/24/25 Carbon Dioxide, (22-29) 25 mmol/L 06/24/25 BUN, (9-16) 35 mg/dL H 06/24/25 Creatinine, (0.5-1.4) 2.64 mg/dL H 06/24/25 Calcium, (8.4-10.2) 8.7 mg/dL 06/24/25 PTH Intact Pending Today Urine Protein, (Neg-Trace) 30 (1+) mg/dL H 06/24/25 Urine Creatinine 64.87 mg/dL 06/24/25 Assessment & Plan Assessment & Plan (1) CKD (chronic kidney disease) stage 4, GFR 15-29 ml/min: Code(s): N18.4 - Chronic kidney disease, stage 4 (severe) Category: Medical (2) Hypertension: Code(s): I10 - Essential (primary) hypertension Category: Medical Qualifiers: Hypertension type: unspecified Qualified Code(s): I10 - Essential (primary) hypertension (3) Elevated blood pressure reading in office with white coat syndrome, with diagnosis of hypertension: Code(s): I10 - Essential (primary) hypertension Category: Medical Plan Hamilton has chronic kidney disease. Serum creatinine was elevated at 1.8 about 4 years ago. The repeat creatinine is 2.36 with a EGFR of 26 mL/minute. and up to 2.6 mg/dL Etiology needs to be determined. - Work up in progress He does not have a history of hypertension however today the blood pressure was elevated. Obtain renal ultrasonogram to rule out hydronephrosis obstruction and to assess the kidney size and echogenicity. Serologies ordered Based on 24 hour ABP ME will increase amlodipine from 2.5 mg a day up to 5 mg a day. Stay on low-sodium diet. Return to clinic in the next few weeks . Orders: Orders AMB 24 HR B/P Monitor INTERPRETATION Today I10 - Essential (primary) hypertension Medications: Changed From amlodipine 2.5 mg PO DAILY 30 tabs 1RF To amlodipine 5 mg PO DAILY 30 tabs 1RF Coding Level of Care Code Est Pt Level 3 (23103) Diagnoses CKD (chronic kidney disease) stage 4, GFR 15-29 ml/min N18.4 Hypertension, unspecified type I10 Hypertension type: unspecified Elevated blood pressure reading in office with white coat syndrome, with diagnosis of hypertension I10 CPT Codes - CPT: 31599 24 Hour Blood Pressure Monitor Reading ([id number])
--- OUTSIDE RECORDS SUMMARY | 2025-07-16 21:14 | XMS_ITS | Clinical Summary ---
Author Organization [facility] Facility Address [address] [address] Care Team Providers Care Rf Test Technician Name Role Phone Andrew Christensen MD Primary Care Provider [phone] Social History Tobacco Use Types Packs/Day Years [...] age to complete this topic Care Teams Rf Test Technician Relationship Specialty Start Date End Date Andrew Christensen MD [address] [place], [place] PCP - General Internal Medicine 11/25/20
== END 2025-07-16 14:32 | disposition home or self-care (01) ==
LOC: HO.HKA 14:20
PROVIDERS: PCP Student in an Organized Health Care Education/Training Program; Visit Provider Internal Medicine Hypertension Specialist
DX: I12.9 Hypertensive chronic kidney disease with stage 1 through stage 4 chronic kidney disease, or unspecified chronic kidney disease (principal); N18.4 Chronic kidney disease, stage 4 (severe)
CPT/HCPCS: 93790; 99213

== ENCOUNTER 2025-07-16 14:19 | Outpatient (REF) | payer OTHER, SELFPAY ==
[2025-07-16 15:27] LABS: Anion Gap 12 (12-20); Blood Urea Nitrogen 35 mg/dL (9-16); Calcium 8.6 mg/dL (8.4-10.2); Carbon Dioxide 24 mmol/L (22-29); Chloride 108 mmol/L (96-108); Estimated Glomerular Filt Rate 28; Potassium 4.3 mmol/L (3.3-5.1); Sodium 140 mmol/L (135-145)
[2025-07-16 17:04] LABS: Parathyroid Hormone Intact 199.3 pg/mL (8.7-77.1)
[2025-07-20 10:08] LABS: Anti Nuclear Antibody Screen NEGATIVE (NEGATIVE)
[2025-07-20 11:28] LABS: Neutrophil Cyto Ab Screen NEGATIVE (NEGATIVE)
[2025-07-20 14:34] LABS: Anti Glomerular Basement Memb <1.0 AI
[2025-07-21 18:13] LABS: Prot Elec - Albumin 4.2 g/dL (3.8-4.8); Prot Elec - Alpha1 0.2 g/dL (0.2-0.3); Prot Elec - Alpha2 0.7 g/dL (0.5-0.9); Prot Elec - Beta 1 0.4 g/dL (0.4-0.6); Prot Elec - Beta 2 0.3 g/dL (0.2-0.5); Prot Elec - Gamma 0.9 g/dL (0.8-1.7); Prot Elec - Total Protein 6.8 g/dL (6.1-8.1)
== END 2025-07-16 14:20 | disposition home or self-care (01) ==
LOC: HO.LAB 14:19
PROVIDERS: PCP Student in an Organized Health Care Education/Training Program; Visit Provider Internal Medicine Hypertension Specialist
DX: I12.9 Hypertensive chronic kidney disease with stage 1 through stage 4 chronic kidney disease, or unspecified chronic kidney disease (principal); N18.4 Chronic kidney disease, stage 4 (severe); Z01.84 Encounter for antibody response examination
CPT/HCPCS: 36415; 80048; 83520; 83970; 84165; 86036; 86038; 86160; 86225; 93786; 93788

== ENCOUNTER 2025-07-26 15:00 | Outpatient (REF) | payer OTHER, SELFPAY ==
--- NOTE | ~2025-07-26 | US_ITS ---
EXAMINATION: US KIDNEY BILATERAL HISTORY: I10 - Essential (primary) hypertension TECHNIQUE: Real-time grayscale ultrasound imaging of the kidneys was performed and images were reviewed. COMPARISON: There are no prior studies available for comparison. FINDINGS: Right kidney: The right kidney measures 11.8 x 5.9 x 6.0 cm. There is increased renal cortical echotexture, compatible with chronic medical renal disease. There is a 5.6 x 5.7 x 5.4 cm septated cyst in the interpolar region and a 2.2 x 1.9 x 1.3 cm cyst at the upper pole. There is no hydronephrosis or renal calculi. Left Kidney: The left kidney measures 14.7 x 7.4 x 7.3 cm. There is diffuse renal cortical thinning. There are no masses. There is severe hydronephrosis. US/US renal BI IMPRESSION: 1. Right renal cysts as described. 2. Severe left hydronephrosis. Urologic consultation is recommended. Electronically signed by: Tereso Davis MD 07/26/2025 03:40 PM DIVYA
--- OUTSIDE RECORDS SUMMARY | 2025-07-26 19:48 | XMS_ITS | Data Portability ---
Author Organization [facility] Internal Medicine, Telehealth Patient Home Address [address] [place] [address] Assessment Encounter Date Assessment Date Assessment LastModified [...] By Organization Details Last Modified Time 03/30/2019 92300 psoriasis: care instructions Not available 03/30/2019 14:35:25 Reason for Referral None Reported. Problems Name Problem SNOMED Code Status Onset Date Resolution Date Notes Provider Name and Address Organization Details Recorded Time Psoriasis 0615387 Active 019 Nino Khan, DO [address] [place], [address], [facility] Internal Medicine 9 14:00:33 Problem Notes None [...] (BMI) Body weight Heart rate Oxygen saturation Systolic And Diastolic Provider Name and Address Organization Details Last Updated DateTime 9 160.02 cm 36.6 kg/m2 72375.9 g 88 /min 100 % 156/84 mm[Hg] Nino Khan DO [address] [place], [address], [facility] 9 14:02:22 Social History None recorded. Functional Status None recorded. Mental Status None recorded. Family History Nothing Reported. Medical History No medical history recorded. Past Encounters Encounter ID Performer Location Encounter Start Date Encounter Closed Date Diagnosis/Indication Diagnosis SNOMED-CT Code Diagnosis ICD10 Code Diagnosis IMO Codes Diagnosis Note [id number] Nino Khan DO [facility] Internal Medicine [address] [facility],[place] [address] 03/30/2019 13:48:25 03/30/2019 14:42:06 Psoriasis 0773571 L40.[address] dozier no current issue Adult [facility] th examination 294035261 Z00.00 Health Concerns Section Related Observation LastModified by Organization Detai ls LastModified Time None Recorded Concern Status LastModified by Organization Details LastModified Time None Recorded Advance Directives Directive None Recorded Payers Insurance Date Sequence Insurance Name Policy Number Policy Col[place]a Covered Member ID Colunga Member ID Guarantor Name 03/25/[address] [place] [address] [id number] Martha Amandajosegarry [id number] [place] Benítez Notes Date Note Type Note Provider Name a nd Address Organization Details Recorded Time 03/30/2019 text/html ROS as noted in the HPI here for rehck feels good and is not having any issues 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
== END 2025-07-26 15:01 | disposition home or self-care (01) ==
LOC: HO.US 15:00
PROVIDERS: PCP Student in an Organized Health Care Education/Training Program; Visit Provider Internal Medicine Hypertension Specialist
DX: I12.9 Hypertensive chronic kidney disease with stage 1 through stage 4 chronic kidney disease, or unspecified chronic kidney disease (principal); N18.4 Chronic kidney disease, stage 4 (severe)
CPT/HCPCS: 76775

== ENCOUNTER → 2025-07-26 15:02 | Outpatient (BNV) | payer OTHER, SELFPAY | PROVIDERS: PCP Student in an Organized Health Care Education/Training Program; Visit Provider Radiology Diagnostic Radiology | DX: N13.0 Hydronephrosis with ureteropelvic junction obstruction (principal); N28.1 Cyst of kidney, acquired | CPT/HCPCS: 76775 ==

== ENCOUNTER 2025-07-27 12:30 | Outpatient (AMB) | payer OTHER, SELFPAY ==
--- NOTE | 2025-07-27 12:53 | A.OFFVIS_ITS ---
Intake Visit Reasons: Severe left hydro Intake Note: Patient is present for SEVERE LEFT HYDRO Urology Medication:NONE Antibiotic Allergy:NONE Blood Thinner:ASPIRIN TODAY'S PVR:19ML'S Stitch Cleaner Required: No Allergies No Known Allergies Allergy (Verified 07/27/25 12:55) HPI Comments Details: Delta is a very pleasant 70-year-old male patient of Dr. Saldana who was accompanied by his at today's office visit. He has a past medical history of chronic kidney disease, osteoarthritis, hypertension, and hyperlipidemia. He presents to the office today as a new patient for hydronephrosis. In discussion with the patient today he discusses his recent referral to Nephrology due to an increase in his creatinine and has been undergoing further workup with Nephrology. It appears a renal ultrasound was ordered and noted severe hydronephrosis and recommendations were made for urology referral for further assessment evaluation. We did discussed at length potential causes of hydronephrosis as well as further treatment options and risks and benefits of these treatment options. He denies any bothersome urinary issues. In office urinalysis results reviewed with the patient today trace microscopic hematuria 2+ proteinuria. PVR 19 mL. He denies any previous history of nicotine dependence and or workplace chemical exposure. He denies urinary urgency, urinary frequency, incontinence, nocturia, hematuria, dysuria, foul smelling urine, changes to urinary stream, flank pain, fever, and or chills. He is happy with his current voiding parameters. All questions were answered to the best of my ability. He otherwise offers no other issues or concerns at this time. Renal ultrasound: 07/27 bilateral kidneys right renal cysts, severe left hydronephrosis. BUN: 08/21 33, 11/20 29, 05/27 35, 06/26 35, 07/27 35 Creatinine:08/21 1.89, 11/20 1.76, 05/27 2.5, 06/26 2.6, 07/27 2.3 [facility] Medical History CKD (chronic kidney disease) stage 4, GFR 15-29 ml/min OA (osteoarthritis) of knee Hypertension Upper respiratory infection Flu syndrome Hyperlipidemia Family History Mother No problems noted. Father No problems noted. Social History Housing: House Patient Tobacco Use Status: Never used Tobacco e-Cigarette/Vaping Use: Never Used service: No Current occupational status: retired Cognitive needs: No Hearing needs: No Vision needs: No Review of Systems Const All systems reviewed & are unremarkable except as noted in HPI and below Physical Exam Const General: cooperative, healthy appearing, comfortable, no acute distress, well developed, alert and awake Nutritional Appearance: overweight Orientation/consciousness: patient oriented x3 Limitations: no limitations HEENT Head: Yes normal to inspection, Yes normocephalic and Yes atraumatic Ears: hearing grossly normal bilaterally Eyes General: appearance normal, both eyes and all related structures Neck Neck: Yes normal visual inspection and Yes trachea midline Chest Chest palpation & inspection: normal inspection of the chest Resp Effort & Inspection: normal respiratory effort and able to speak in complete sentences Cardio Rate: regular rate GI Inspection: Yes normal to inspection General: Yes no CVA tenderness Back/Spine/Pelvis Back: no CVA tenderness Skin General skin exam: no rashes or lesions noted Neuro General: patient oriented x3 Extrem General: Yes normal to inspection Psych Appearance: grossly normal and well kempt Mental Status: mental status grossly normal Speech and movement: Normal speech and movement present and Clear speech present Affect: normal affect Attitude: cooperative Thought process: Normal thought process present Thought content: Normal thought content present Insight: Fair insight present (Psych) Judgement: Fair judgement present (Psych) Office Procedures Post Void Residual Post Residual Void Post Void Residual (PVR): 19 25271-Ledi Void Residual by ultrasound Results AMB Urinalysis, Automated UA Leukoctes 0 Ayleen/uL Last Edit by SOUTH Rowan on 07/27/25 13:09 UA Nitrite Negative Last Edit by SOUTH Rowan on 07/27/25 13:09 UA Urobilinogen 0.2 mg/dL Last Edit by SOUTH Rowan on 07/27/25 13:0 9 UA Protein 100 mg/dL Last Edit by SOUTH Rowan on 07/27/25 13:09 UA pH 6.0 Last Edit by SOUTH Rowan on 07/27/25 13:09 UA Blood 10 Kashif/uL Last Edit by SOUTH Rowan on 07/27/25 13:09 UA Specific Isabel 1.015 Last Edit by SOUTH Rowan on 07/27/25 13: 09 UA Ketone Negative Last Edit by SOUTH Rowan on 07/27/25 13:09 UA Bilirubin 0 mg/dL Last Edit by SOUTH Rowan on 07/27/25 13:09 UA Glucose 0 mg/dL Last Edit by SOUTH Rowan on 07/27/25 13:09 Results Reviewed Results Reviewed: Date of Service: 07/26/25 Procedure(s): US renal BI FINDINGS: Right kidney: The right kidney measures 11.8 x 5.9 x 6.0 cm. There is increased renal cortical echotexture, compatible with chronic medical renal disease. There is a 5.6 x 5.7 x 5.4 cm septated cyst in the interpolar region and a 2.2 x 1.9 x 1.3 cm cyst at the upper pole. There is no hydronephrosis or renal calculi. Left Kidney: The left kidney measures 14.7 x 7.4 x 7.3 cm. There is diffuse renal cortical thinning. There are no masses. There is severe hydronephrosis. IMPRESSION: 1. Right renal cysts as described. 2. Severe left hydronephrosis. Urologic consultation is recommended. Assessment & Plan Assessment & Plan (1) Hydronephrosis determined by ultrasound: Code(s): N13.30 - Unspecified hydronephrosis Category: Medical Plan In office urinalysis results with the patient today; as noted above; will send for urine cytology. PVR 19 mL. We did discussed at length potential causes of hydronephrosis as well as further treatment options and risks and benefits of these treatment options. All questions were answered. Will obtain nuclear renal scan for further assessment evaluation. He currently denies any bothersome urinary issues or concerns. He reports be happy with current voiding parameters. Follow-up in 1-2 weeks with imaging to be completed prior or sooner with any issues, concerns, and or questions. Orders: Orders AMB Urinalysis Automated Today Z13.9 - Encounter for screening, unspecified Urine Cytology Today R31.29 - Other microscopic hematuria NM renal flow w pharm int Today N13.30 - Unspecified hydronephrosis Patient Instructions: The patient had an opportunity to ask questions regarding the treatment plan. All questions were answered. Physical exam, labs, and imaging were discussed and reviewed in detail. As well as risks, benefits, and discussion of treatment choices. No major barriers to understanding were identified. The patient expressed understanding and agreement with the above treatment plan. The patient was made aware they should contact our office by phone for worsening of their current condition, the appearance of new symptoms, or with any questions or concerns. Compliance is encouraged with any medications and follow up testing that is ordered. It is a privilege to be allowed the opportunity to participate in? your urological care.? Again, if you have any questions or concerns If you have any questions or concerns please do not hesitate to contact me. The office is [phone]. This note is constructed using voice recognition software. While every effort has been made to ensure accuracy personal financial representative errors may have been included. Yours sincerely, ROSLYN Mckenzie Coding Level of Care Code New Pt Level 3 (67505) Diagnoses Hydronephrosis determined by ultrasound N13.30 CPT Codes Post Residual Void - PVR CPT Code: 24689-Gzoz Void Residual by ultrasound ([id number])
--- OUTSIDE RECORDS SUMMARY | 2025-07-27 16:04 | XMS_ITS | Clinical Summary ---
Author Organization [facility] Facility Address [address] [address] Care Team Providers Care Toll Repairer Central Office Name Role Phone Andrew Christensen MD Primary Care Provider [phone] Social History Tobacco Use Types Packs/Day Years [...] age to complete this topic Care Teams Toll Repairer Central Office Relationship Specialty Start Date End Date Andrew Christensen MD [address] [place], [place] PCP - General Internal Medicine 11/25/20
== END 2025-07-27 13:30 | disposition home or self-care (01) ==
LOC: HO.HUSH 12:30
PROVIDERS: PCP Student in an Organized Health Care Education/Training Program; Visit Provider Nurse Practitioner Family
DX: N13.30 Unspecified hydronephrosis (principal); Z13.9 Encounter for screening, unspecified
CPT/HCPCS: 99203

== ENCOUNTER 2025-07-27 12:30 | Outpatient (REF) | payer OTHER, SELFPAY | END 2025-07-27 12:31 | disposition home or self-care (01) | LOC: HO.LAB 12:30 | PROVIDERS: PCP Student in an Organized Health Care Education/Training Program; Visit Provider Nurse Practitioner Family | DX: R31.29 Other microscopic hematuria (principal); N13.30 Unspecified hydronephrosis | CPT/HCPCS: 51798; 81003; 88112 ==

== ENCOUNTER → 2025-08-09 12:31 | Outpatient (REF) | payer OTHER, SELFPAY ==
--- NOTE | ~2025-08-09 | NM_ITS ---
EXAMINATION: NM KIDNEY FLOW FUNCTION WITH RX HISTORY: N13.30 - Unspecified hydronephrosis. TECHNIQUE: A renogram and renal scan were performed following intravenous demonstration of 10 mCi technetium 99m-DTPA. The patient received 40 mg IV Lasix approximately 30 minutes after injection of the radiopharmaceutical. COMPARISON: Correlation is made with a renal ultrasound dated 07/26/2025. FINDINGS: There is normal blood flow to the right kidney. There is no visualized perfusion of the left kidney. The right kidney demonstrates normal excretion of the radiopharmaceutical. The half-life of excretion on the right is 5.6 minutes. There is no cortical uptake or excretion on the left. NM/NM renal flow w pharm int IMPRESSION: Normally functioning right kidney. No uptake or excretion is seen on the left, consistent with a nonfunctioning kidney. Electronically signed by: Tereso Davis MD 08/09/2025 03:25 PM EST
== END ==
LOC: HO.NUCMED 12:31
PROVIDERS: PCP Student in an Organized Health Care Education/Training Program; Visit Provider Nurse Practitioner Family
DX: N13.30 Unspecified hydronephrosis (principal)
CPT/HCPCS: 78708; A9539; J1938

== ENCOUNTER → 2025-08-09 12:33 | Outpatient (BNV) | payer OTHER, SELFPAY | PROVIDERS: PCP Student in an Organized Health Care Education/Training Program; Visit Provider Radiology Diagnostic Radiology | DX: N13.30 Unspecified hydronephrosis (principal) | CPT/HCPCS: 78708 ==

== ENCOUNTER 2025-08-16 13:00 | Outpatient (AMB) | payer OTHER, SELFPAY ==
[2025-08-16 13:15] VITALS: BP 184/110; PULSE 86; O2SAT 96; BMI 35.8
--- NOTE | 2025-08-16 13:15 | HO.NEPHOV ---
Vital Signs 08/16/25 13:15 Height 5 ft 5 in Weight 215 lb BMI 35.8 BP 184/110 H Blood Pressure Location Rt brachial Position Sitting Pulse 86 Pulse Source Pulse Oximeter Pulse Oximetry (%) 96 Oxygen Delivery Method Room Air Intake Visit Reasons: 4 wks f/u Ssis Ssrs Developer Required: No Accompanied by: Spouse Allergies No Known Allergies Allergy (Verified 08/16/25 13:17) Medication List - Last Reconciled 08/16/25 by You Kilpatrick MD amlodipine 5 mg PO DAILY amoxicillin 2,000 mg PO Q6H aspirin 0.5 mg PO DAILY halobetasol propionate 0.05% topical BEDTIME omega-3 fatty acids-fish oil 360-1,200 mg (Fish Oil) 1 cap PO DAILY HPI Comments Details: History of Present Illness The patient is a 70 year old male presenting for follow-up on uncontrolled hypertension and abnormal kidney function. An ultrasound revealed SEVERE HYDRONEPHROSIS on the left side, and a subsequent nuclear scan indicated the left kidney is non-functional. Seen by Urology The patient's eGFR is 28 ml/mt , a decline from 36-39 ml/mt reported in 2019 and 2020, suggesting a chronic issue. The patient is asymptomatic regarding his kidney condition and has no pain, making a kidney stone less likely. He has an upcoming appointment with a urologist on the to discuss further management, which may include a stent or surgery. The patient also has uncontrolled hypertension, with a recent reading of 184, which is resistant to current treatment. He reports compliance with his medications and a low-salt diet. He denies any side effects, such as swelling, from his current blood pressure medication and reports feeling well on it. Results - Ultrasound: Revealed a blockage on the left side and an enlarged left kidney of 14 cm, likely due to fluid accumulation. - Nuclear Scan: Indicated that the left kidney is not functioning at all. - Laboratory Findings: Total kidney function is approximately 28%. - Historical Laboratory Findings: Kidney function was reported as 36-39% in 2019 and 2020. [facility] Medical History CKD (chronic kidney disease) stage 4, GFR 15-29 ml/min OA (osteoarthritis) of knee Hypertension Upper respiratory infection Flu syndrome Hyperlipidemia Family History Mother No problems noted. Father No problems noted. Social History Housing: House Patient Tobacco Use Status: Never used Tobacco e-Cigarette/Vaping Use: Never Used service: No Current occupational status: retired Cognitive needs: No Hearing needs: No Vision needs: No Physical Exam Exam Exam: Physical Exam General: Awake. Comfortable. HENT: Neck supple. Mucosa moist. Pulmonary: Lungs aeration equal. No rales. Cardiology: Heart S1-S2 heard. No gallop. Abdomen: Soft. Non tender. Bowel sounds normal. Neurologic: No involuntary movements. No myoclonus. Extremities: No edema. No rash. Vital Signs: Last Vital Signs Pulse 86 08/16/25 13:15 BP 184/110 H 08/16/25 13:15 Pulse Ox 96 08/16/25 13:15 Oxygen Delivery Method Room Air 08/16/25 13:15 BMI result Body Mass Index 35.8 Results Reviewed Nephrology Results: Sodium, (135-145) 140 mmol/L 07/16/25 Potassium, (3.3-5.1) 4.3 mmol/L 07/16/25 Chloride, (96-108) 108 mmol/L 07/16/25 Carbon Dioxide, (22-29) 24 mmol/L 07/16/25 BUN, (9-16) 35 mg/dL H 07/16/25 Creatinine, (0.5-1.4) 2.29 mg/dL H 07/16/25 Calcium, (8.4-10.2) 8.6 mg/dL 07/16/25 PTH Intact, (8.7-77.1) 199.3 pg/mL H 07/16/25 Renal US 07/26/25 Assessment & Plan Assessment & Plan (1) CKD (chronic kidney disease) stage 4, GFR 15-29 ml/min: Code(s): N18.4 - Chronic kidney disease, stage 4 (severe) Category: Medical Plan Plan 1. Non-Functioning Left Kidney And Chronic Kidney Disease - A recent ultrasound showed a left-sided blockage, and a nuclear scan confirmed the left kidney is non-functional, contributing to an overall eGFR of 28 ml/mt. - The cause is presumed to be the long-standing obstruction. - The patient is scheduled to see a urologist on the to discuss management options. - Further management will be deferred to urology. - Plan to obtain blood work in September to re-check kidney function prior to the next follow-up visit. 2. Uncontrolled Hypertension - The patient's hypertension remains uncontrolled with a systolic reading of 184, which is likely secondary to his chronic kidney disease. - He is tolerating his current antihypertensive medication well, without side effects such as swelling. - The current medication dose will be increased from 5 mg to 10 mg daily. - INCREASE AMLODIPINE TO 10 mg DIALY - Will re-evaluate blood pressure control at a follow-up visit next month. Orders: Orders Basic Metabolic Panel 4 Weeks I10 - Essential (primary) hypertension, N18.4 - Chronic kidney disease, stage 4 (severe) Medications: Changed From amlodipine 5 mg PO DAILY 90 tabs 1RF To amlodipine 10 mg PO DAILY 90 tabs 1RF Coding Level of Care Code Est Pt Level 4 (34830) Diagnoses CKD (chronic kidney disease) stage 4, GFR 15-29 ml/min N18.4
--- OUTSIDE RECORDS SUMMARY | 2025-08-16 18:55 | XMS_ITS | Data Portability ---
Author Organization [facility] Internal Medicine, Telehealth Patient Home Address [address] [place] [address] Assessment Encounter Date Assessment Date Assessment LastModified [...] By Organization Details Last Modified Time 03/30/2019 [id number] psoriasis: care instructions Not available 03/30/2019 14:35:25 Reason for Referral None Reported. Problems Name Problem SNOMED Code Status Onset Date Resolution Date Notes Provider Name and Address Organization Details Recorded Time Psoriasis 1967759 Active 019 Nino Khan, DO [address] [place], [address], [facility] Internal Medicine 9 14:00:33 Problem Notes [...] Updated DateTime 9 160.02 cm 36.6 kg/m2 85734.9 g 88 /min 100 % 156/84 mm[Hg] Nino Khan DO [address] [place], [address], [facility] 9 14:02:22 Social History None recorded. Functional Status None recorded. Mental Status None recorded. Family History Nothing Reported. Medical History No medical history recorded. Past Encounters Encounter ID Performer Location Encounter Start Date Encounter Closed Date Diagnosis/Indication Diagnosis SNOMED-CT Code Diagnosis ICD10 Code Diagnosis IMO Codes Diagnosis Note [id number] Nino Khan DO [facility] Internal Medicine [address] [facility] [address] 03/30/2019 13:48:25 03/30/2019 14:42:06 Psoriasis 4348727 L40[address] dozier no current issue Adult [facility] th examination 080867955 Z00.00 Health Concerns Section Related Observation LastModified by Organization Detai ls LastModified Time None Recorded Concern Status LastModified by Organization Details LastModified Time None Recorded Advance Directives Directive None Recorded Payers Insurance Date Sequence Insurance Name Policy Number Policy [place] Covered Member ID [place] Member ID Guarantor Name 03/25/[address] [place] [address] [id number] Martha Amandajosegarry [id number] Hamilton Benítez Notes Date Note Type Note Provider Name a nd Address Organization Details Recorded Time 03/30/2019 text/html ROS as noted in the HPI here for rehck feels good and is not having any issues denies cp 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
== END 2025-08-16 13:34 | disposition home or self-care (01) ==
LOC: HO.HKA 13:00
PROVIDERS: PCP Student in an Organized Health Care Education/Training Program; Visit Provider Internal Medicine Hypertension Specialist
DX: N18.4 Chronic kidney disease, stage 4 (severe) (principal)
CPT/HCPCS: 99214

== ENCOUNTER 2025-08-18 14:35 | Outpatient (REF) | payer OTHER, SELFPAY ==
--- OUTSIDE RECORDS SUMMARY | 2025-08-18 19:47 | XMS_ITS | Clinical Summary ---
Author Organization [facility] Facility Address [address] [address] Care Team Providers Care Mixer Helper Name Role Phone Andrew Christensen MD Primary Care Provider [phone] Social History Tobacco Use Types Packs/Day Years [...] age to complete this topic Care Teams Mixer Helper Relationship Specialty Start Date End Date Andrew Christensen MD [id number] [place], [place] PCP - General Internal Medicine 11/25/20
== END 2025-08-18 14:36 | disposition home or self-care (01) ==
LOC: HO.LAB 14:35
PROVIDERS: PCP Student in an Organized Health Care Education/Training Program; Visit Provider Nurse Practitioner Family
DX: N13.30 Unspecified hydronephrosis (principal); N28.9 Disorder of kidney and ureter, unspecified
CPT/HCPCS: 81003; 88112

== ENCOUNTER 2025-08-18 14:35 | Outpatient (AMB) | payer OTHER, SELFPAY ==
--- NOTE | 2025-08-18 14:40 | MHC.OFFVIS ---
Intake Visit Reasons: Nuclear Scan follow up Intake Note: Patient is present for NUCLEAR SCAN Urology Medication:NONE Antibiotic Allergy:NONE Blood Thinner:ASPIRIN Local Delivery Driver Required: No Allergies No Known Allergies Allergy (Verified 08/18/25 15:27) Medication List - Last Reconciled 08/18/25 by TRESSA Mckenzie- amlodipine 10 mg PO DAILY amoxicillin 2,000 mg PO Q6H aspirin 0.5 mg PO DAILY halobetasol propionate 0.05% topical BEDTIME omega-3 fatty acids-fish oil 360-1,200 mg (Fish Oil) 1 cap PO DAILY HPI Comments Details: Delta is a very pleasant 70-year-old male patient of Dr. Saldana who was accompanied by his at today's office visit. He has a past medical history of chronic kidney disease, osteoarthritis, hypertension, and hyperlipidemia. He presents to the office today for follow-up of his hydronephrosis. Of note, patient was seen approximately 1 month ago as a new patient for hydronephrosis at which time a nuclear renal scan was ordered for further assessment evaluation. These results were reviewed and communicated with the patient and his today. 08/26 there is normal blood flow to the right kidney. There is no visualized perfusion of the left kidney. The right kidney demonstrates normal excretion of the radiopharmaceutical. The half-life of excretion on the right is 5.6 minutes. There is no cortical uptake or excretion on the left. No uptake or excretion is seen on the left kidney, consistent with non functioning left kidney. He continues to follow-up with nephrology. We discussed non functioning kidney at length. All questions were answered to the best of my ability. In office urinalysis results with the patient today. He denies any bothersome urinary issues or concerns. He denies urinary urgency, urinary frequency, incontinence, nocturia, hematuria, dysuria, foul smelling urine, changes to urinary stream, flank pain, fever, and or chills. He is happy with his current voiding parameters. He otherwise offers no other issues or concerns at this time. Renal ultrasound: 07/27 bilateral kidneys right renal cysts, severe left hydronephrosis. Nuclear Renal Scan: 08/26 Normally functioning right kidney. No uptake or excretion is seen on the left, consistent with a nonfunctioning kidney. BUN: 08/21 33, 11/20 29, 05/27 35, 06/26 35, 07/27 35 Creatinine:08/21 1.89, 11/20 1.76, 05/27 2.5, 06/26 2.6, 07/27 2.3 PFSH Medical History CKD (chronic kidney disease) stage 4, GFR 15-29 ml/min OA (osteoarthritis) of knee Hypertension Upper respiratory infection Flu syndrome Hyperlipidemia Family History Mother No problems noted. Father No problems noted. Social History Housing: House Patient Tobacco Use Status: Never used Tobacco e-Cigarette/Vaping Use: Never Used service: No Current occupational status: retired Cognitive needs: No Hearing needs: No Vision needs: No Review of Systems Const All systems reviewed & are unremarkable except as noted in HPI and below Physical Exam Const General: cooperative, healthy appearing, comfortable, no acute distress, well developed, alert and awake Nutritional Appearance: overweight Orientation/consciousness: patient oriented x3 Limitations: no limitations HEENT Head: Yes normal to inspection, Yes normocephalic and Yes atraumatic Ears: hearing grossly normal bilaterally Eyes General: appearance normal, both eyes and all related structures Neck Neck: Yes normal visual inspection and Yes trachea midline Chest Chest palpation & inspection: normal inspection of the chest Resp Effort & Inspection: normal respiratory effort and able to speak in complete sentences Cardio Rate: regular rate GI Inspection: Yes normal to inspection General: Yes no CVA tenderness Back/Spine/Pelvis Back: no CVA tenderness Skin General skin exam: no rashes or lesions noted Neuro General: patient oriented x3 Extrem General: Yes normal to inspection Psych Appearance: grossly normal and well kempt Mental Status: mental status grossly normal Speech and movement: Normal speech and movement present and Clear speech present Affect: normal affect Attitude: cooperative Thought process: Normal thought process present Thought content: Normal thought content present Insight: Fair insight present (Psych) Judgement: Fair judgement present (Psych) Results AMB Urinalysis, Automated UA Leukoctes 0 Ayleen/uL Last Edit by SOUTH Rowan on 08/18/25 14:53 UA Nitrite Negative Last Edit by SOUTH Rowan on 08/18/25 14:53 UA Urobilinogen 0.2 mg/dL Last Edit by SOUTH Rowan on 08/18/25 14:53 UA Protein 30 mg/dL Last Edit by SOUTH Rowan on 08/18/25 14:53 UA pH 6.0 Last Edit by Mary Ann Joseph [facility] on 08/18/25 14:53 UA Blood 10 Kashif/uL Last Edit by Mary Ann Joseph [facility] on 08/18/25 14:53 UA Specific [place] 1.015 Last Edit by Mary Ann Joseph [facility] on 08/18/25 14:53 UA Ketone Negative Last Edit by SOUTH Rowan on 08/18/25 14:53 UA Bilirubin 0 mg/dL Last Edit by Mary Ann Joseph [facility] on 08/18/25 14:53 UA Glucose 0 mg/dL Last Edit by Mary Ann Joseph [facility] on 08/18/25 14:53 Results Reviewed Results Reviewed: Laboratory Last Values Urine pH (Auto) 6.0 08/18/25 14:52 Specific [place] (Auto) 1.015 08/18/25 14:52 Urine Protein (Auto) 30 mg/dL 08/18/25 14:52 Glucose (UA)(Auto) 0 mg/dL 08/18/25 14:52 Urine Ketones (Auto) Negative 08/18/25 14:52 Urine Blood (Auto) 10 Kashif/uL 08/18/25 14:52 Urine Nitrite (Auto) Negative 08/18/25 14:52 Urine Bilirubin (Auto) 0 mg/dL 08/18/25 14:52 Urine Urobilinogen (Auto) 0.2 mg/dL 08/18/25 14:52 Leukocyte Esterase (Auto) 0 Ayleen/uL 08/18/25 14:52 Date of Service: 08/09/25 Procedure(s): NM renal flow w pharm int FINDINGS: There is normal blood flow to the right kidney. There is no visualized perfusion of the left kidney. The right kidney demonstrates normal excretion of the radiopharmaceutical. The half-life of excretion on the right is 5.6 minutes. There is no cortical uptake or excretion on the left. IMPRESSION: Normally functioning right kidney. No uptake or excretion is seen on the left, consistent with a nonfunctioning kidney. Assessment & Plan Assessment & Plan (1) Hydronephrosis determined by ultrasound: Code(s): N13.30 - Unspecified hydronephrosis Category: Medical (2) Non-functioning kidney: Code(s): N28.9 - Disorder of kidney and ureter, unspecified Category: Medical Plan In office urinalysis results with the patient today; as noted above. Most recent nuclear renal scan results reviewed with the patient today; as noted above. We did discuss nonfunctioning kidney All questions were answered to the best of my ability. He currently denies any bothersome urinary issues or concerns. His current voiding parameters. Continue to follow-up with nephrology as planned. Will obtain renal ultrasound in 6 months. Follow-up in 6 months with imaging; or sooner with any issues, concerns, and or questions. Orders: Orders Urine Cytology Today R31.29 - Other microscopic hematuria AMB Urinalysis Automated Today Z13.9 - Encounter for screening, unspecified US renal BI 6 Months N13.30 - Unspecified hydronephrosis, N28.9 - Disorder of kidney and ureter, unspecified Patient Instructions: The patient had an opportunity to ask questions regarding the treatment plan. All questions were answered. Physical exam, labs, and imaging were discussed and reviewed in detail. As well as risks, benefits, and discussion of treatment choices. No major barriers to understanding were identified. The patient expressed understanding and agreement with the above treatment plan. The patient was made aware they should contact our office by phone for worsening of their current condition, the appearance of new symptoms, or with any questions or concerns. Compliance is encouraged with any medications and follow up testing that is ordered. It is a privilege to be allowed the opportunity to participate in? your urological care.? Again, if you have any questions or concerns If you have any questions or concerns please do not hesitate to contact me. The office is [phone]. This note is constructed using voice recognition software. While every effort has been made to ensure accuracy licensed optical dispenser errors may have been included. Yours sincerely, ROSLYN Mckenzie Coding Level of Care Code Est Pt Level 3 (36154) Add On Problem Visit Only Diagnoses Hydronephrosis determined by ultrasound N13.30 Non-functioning kidney N28.9
--- OUTSIDE RECORDS SUMMARY | 2025-08-18 19:32 | XMS_ITS | Data Portability ---
Author Organization [facility], Telehealth Patient Home Address [address] [place] [address] Assessment Encounter Date Assessment Date Assessment LastModified [...] By Organization Details Last Modified Time 03/30/2019 [id number] psoriasis: care instructions Not available 03/30/2019 14:35:25 Reason for Referral None Reported. Problems Name Problem SNOMED Code Status Onset Date Resolution Date Notes Provider Name and Address Organization Details Recorded Time Psoriasis 8015632 Active 019 Nino Khan, DO [address] [place], [address], [facility] 9 14:00:33 Problem Notes [...] Updated DateTime 9 160.02 cm 36.6 kg/m2 88906.9 g 88 /min 100 % 156/84 mm[Hg] Nino Khan DO [address] [place], [address], [facility] 9 14:02:22 Social History None recorded. Functional Status None recorded. Mental Status None recorded. Family History Nothing Reported. Medical History No medical history recorded. Past Encounters Encounter ID Performer Location Encounter Start Date Encounter Closed Date Diagnosis/Indication Diagnosis SNOMED-CT Code Diagnosis ICD10 Code Diagnosis IMO Codes Diagnosis Note [id number] Nino Khan DO [facility] [address] [facility] [address] 03/30/2019 13:48:25 03/30/2019 14:42:06 Psoriasis 8530607 L40[address] dozier no current issue [facility] th examination 599778238 Z00.00 Health Concerns Section Related Observation LastModified by Organization Detai ls LastModified Time None Recorded Concern Status LastModified by Organization Details LastModified Time None Recorded Advance Directives Directive None Recorded Payers Insurance Date Sequence Insurance Name Policy Number Policy [place] Covered Member ID [place] Member ID Guarantor Name 03/25/[address] [place] [address] [id number] Martha Amandajosegarry [id number] Hamilton Benítez Notes Date Note Type Note Provider Name a nd Address Organization Details Recorded Time 03/30/2019 text/html ROS as noted in the HPI here for rehck feels good and is not having any issues denies cp 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
== END 2025-08-18 15:22 | disposition home or self-care (01) ==
LOC: HO.HUSH 14:36
PROVIDERS: PCP Student in an Organized Health Care Education/Training Program; Visit Provider Nurse Practitioner Family
DX: N13.30 Unspecified hydronephrosis (principal); N28.9 Disorder of kidney and ureter, unspecified; Z13.9 Encounter for screening, unspecified
CPT/HCPCS: 99213; G2211